=== PATIENT | female | born 1960 | race Caucasian/White ===

== ENCOUNTER 2025-07-11 10:46 | Outpatient (CLI) | payer MEDICARE, SELFPAY ==
--- NOTE | ~2025-07-11 | MMUS_ITS ---
EXAMINATION: US breast RT limited, MM diagnostic amanda BI w chace HISTORY: Palpable right breast mass TECHNIQUE: Additional 3-D tomosynthesis images of the breasts were performed and synthetic 2-D images were generated. CAD analysis was submitted and interpreted. High resolution Limited right breast ultrasound was performed. COMPARISON: None BREAST PARENCHYMAL COMPOSITION: Not dense: There are scattered areas of fibroglandular density. FINDINGS: MAMMOGRAPHIC FINDINGS: There are no suspicious masses, calcifications or architectural distortion in the left breast to suggest malignancy. There is a spiculated mass containing internal calcifications in the upper outer quadrant of the right breast, middle third, which corresponds to the area of palpable concern. ULTRASOUND: Limited right breast ultrasound: At 10-11 o'clock, 1 cm from the nipple there is an irregular shaped vascular mass with lobulated margins and mixed posterior attenuation measuring 3.1 x 2.4 x 1.6 cm. IMPRESSION: 1. Complex spiculated vascular mass of the right breast at 10-11:00, 1 cm from the nipple which corresponds to the area palpable concern. 2. Ultrasound-guided right breast biopsy recommended. BI-RADS category 5, highly suggestive of malignancy. Reviewed, dictated and finalized at location O. PROOFER IMPRESSION: 1. Complex spiculated vascular mass of the right breast at 10-11:00, 1 cm from the nipple which corresponds to the area palpable concern. 2. Ultrasound-guided right breast biopsy recommended. BI-RADS category 5, highly suggestive of malignancy.
== END 2025-07-11 10:47 | disposition home or self-care (01) ==
DX: N63.11 Unspecified lump in the right breast, upper outer quadrant (principal); R92.8 Other abnormal and inconclusive findings on diagnostic imaging of breast
CPT/HCPCS: 76642; 77062; 77066; G0279